=== PATIENT | female | born 1965 | race Caucasian/White ===

== ENCOUNTER → 2017-11-29 08:05 | Day surgery (SDC) | payer BC ==
[~2017-11-29 08:05] MED LIST: Acetaminophen TAB* 325 MG PO PRN; Buffered Lidocaine 0.9% SYRIN* 5 ML/SYR SYRINGE INTRADERM ONE; Buffered Lidocaine 0.9% SYRIN* 5 ML/SYR SYRINGE ONE; Dexamethasone IV* 4 MG/ML 1 ML (4 MG) ONE; Ketorolac INJ* 30 MG/ML 1 ML VIAL ONE; Lidocaine 1%* 5 ML VIAL ONE; Lidocaine 2% PF * 5 ML VIAL ONE; Midazolam* 1 MG/ML 5 ML VIAL (5 MG) ONE; Naloxone* 0.4 MG/ML 1 ML VIAL IV PRN; Ondansetron INJ* 2 MG/ML VIAL ONE; Propofol* 10 MG/ML 20 ML BTL IV PUSH ONE; ceFOXitin 2 GM IVPREMIX* 2 GM/50 ML BAG IVPB ONE; ceFOXitin 2 GM IVPREMIX* 2 GM/50 ML BAG ONE; fentaNYL* 50 MCG/ML 2 ML VIAL (100 MCG VIAL) ONE
[2017-11-29 09:12] LABS: EGFR Non-African American 101.9 (>60)
[2017-11-29 11:53] VITALS: BP 109/68
--- NOTE | 2017-11-29 14:07 | OP ---
OPERATIVE REPORT: DATE OF OPERATION: 11/29/17 - [facility] DATE OF : 69 SURGEON: Lela Dawson MD MEDIA SENIOR RECRUITER: None. PRE-OP DIAGNOSES: Menometrorrhagia, submucous fibroid. POST-OP DIAGNOSES: Menometrorrhagia, submucous fibroid. OPERATIVE PROCEDURE: Dilation, curettage, and hysteroscopic resection of submucous fibroid with MyoSure. ESTIMATED BLOOD LOSS: Minimal. URINE OUTPUT: 500 cc of clear yellow urine. FLUIDS: 700 cc of crystalloid, deficit of 182 cc. FINDINGS: Revealed 2-cm left submucous fibroid resected in total, normal tubal ostia seen on the right and the left, normal uterine cavity, postresection of fibroid. COMPLICATIONS: None apparent. DISPOSITION: Stable to recovery room. DESCRIPTION OF PROCEDURE: The patient was placed in dorsal lithotomy position. The perineum and vagina were prepped and draped in a sterile standard fashion. The patient was identified with the universal protocol for correct procedure, position, and patient. A self-cath was placed for drainage of 500 cc of clear yellow urine. The self-cath was removed. A sterile speculum was inserted. Cervix was visualized, grasped on the anterior lip with a single-toothed tenaculum and dilated to Hegar dilator #9. A hysteroscope was inserted and tubal ostia were seen only on the right. The left was not able to be visualized secondary to large obstructing submucous fibroid. Fibroid measured approximately 2 cm in size and appeared to be coming off the left uterine wall. At that point, the XL MyoSure resecting scope was used for complete resection of the fibroid with complete removal to the base of the fibroid. Both tubal ostia were able to be seen at this point and the uterine cavity was noted to have a normal contour. Hysteroscope was removed. Curettage was performed. Minimal bleeding was noted. Single-toothed tenaculum was removed. Sterile speculum removed. All sponge, instrument, and blade counts were correct throughout the case. The patient tolerated the procedure well and went to the recovery room in stable condition. [id number] #: [id number] MTDD
== END | disposition home or self-care (01) ==
LOC: OR 08:05
PROVIDERS: ATTEND Obstetrics & Gynecology
DX: D25.0 Submucous leiomyoma of uterus (principal); N92.1 Excessive and frequent menstruation with irregular cycle; J30.89 Other allergic rhinitis
CPT/HCPCS: 36415; 80053; 81025; 83735; 86850; 86900; 86901; 88305; J0694; J1100; J1885; J2250; J2405; J2704; J3010